=== PATIENT | male | born 1950 | race Two or more races ===

== ENCOUNTER 2022-02-04 09:59 | Day surgery (SDC) | payer OTHER ==
--- NOTE | 2022-02-02 09:17 | P.HPOR ---
History of Present Illness H&P Date: 02/02/22 Chief Complaint: Left left thumb and ring finger soft tissue mass, left carpal tunnel syndro Subjective: This is a 71 year old male that presents today for initial evaluation regarding a 10-15 year history of left hand numbness mainly involving the thumb index and middle fingers. He also notes soft tissue masses on the left thumb and ring finger that have been present for the past 25 years after a incident at work but states they have been more symptomatic over the last year. He has no other history of recent injury. Physical Examination: LUE: AIN/PIN/Radial/Ulnar/Median motor intact. Radial/Ulnar/Median SILT. 2+/4 Radial/Ulnar pulses palpated. 5/5 APB, 5/5 FDI. Negative Finkelsteins, negative CMC grind, positive Durkan's compression. 1cm subcutaneous mass on volar aspect of thumb tip and volar aspect of ring finger at level of PIP joint. Imaging: X-Rays of the left hand demonstrate advanced degenerative changes at the radioscaphoid articulation. Thumb CMC arthritis, index finger MCP arthritis. Impression: 1.) Left carpal tunnel syndrome 2.) Left thumb soft tissue mass 2x1cm 3.) Left ring finger volar soft tissue mass 1x1cm Plan: Diagnosis and treatment options were discussed with the patient. He would like to proceed with surgical intervention since he failed to respond to conservative treatment. Risks and benefit of surgery including bleeding, infection, damage to surrounding tissue, need for further surgery, possible need to convert to open procedure, residual numbness were discussed and the patient wished to go forward with surgery consisting of left thumb and ring finger soft tissue mass excision with left endoscopic vs open carpal tunnel release. PCP clearance is requested. -Donovan Gonsalez DO Orthopedic Hand/Upper Extremity Surgeon Physical Examination Osteopathic Statement: *. No significant issues noted on an osteopathic structural exam other than those noted in the History and Physical/Consult.
[2022-02-03 14:48] VITALS: BMI 36.0
[~2022-02-04 09:59] MED LIST: DEXAMETHASONE SOD PHOSPHATE 4 MG/ML 1 ML VIAL IV ONE; LACTATED RINGERS 1,000 ML IV SCH; ONDANSETRON 4 MG/2 ML VIAL IVP ONE; Pre Op ABX Message 1 EACH MISC MISCELLANE ONE; fentaNYL (PF) 50 MCG/ML 2 ML AMP IV PRN
[2022-02-04] MEDS ORDERED: fentaNYL (PF) 50 MCG/ML 2 ML AMP ONE (10:28)
[2022-02-04] MEDS ORDERED: PROPOFOL 10 MG/ML 20 ML VIAL IV ONE (10:28)
[2022-02-04] MEDS ORDERED: MIDAZOLAM 2 MG/2 ML VIAL ONE (10:28)
[2022-02-04] MEDS ORDERED: LIDOCAINE 2% INJ 20 MG/ML (2 ML VIAL) ONE (10:28)
[2022-02-04] MEDS ORDERED: PHENYLEPHRINE-0.9% NACL SYG 1,000 MCG/10 ML SYRINGE ONE (10:28)
[2022-02-04] MEDS ORDERED: BUPIVACAINE (PF) 0.5% 30 ML VIAL SQ ONE ×2 (10:53→11:25)
[2022-02-04 11:41] VITALS: TEMP 96.8
[2022-02-04 12:06] VITALS: RESP 16
[2022-02-04 12:20] VITALS: PULSE 60
[2022-02-04 12:38] VITALS: BP 119/77
--- NOTE | 2022-02-04 19:02 | P.OP ---
Date of Procedure: 02/04/22 Preoperative Diagnosis: 1.) Left carpal tunnel syndrome 2.) Left thumb volar soft tissue mass 2x2cm 3.) Left ring finger volar soft tissue mass 1x2cm Postoperative Diagnosis: 1.) Left carpal tunnel syndrome 2.) Left thumb volar soft tissue mass 2x2cm 3.) Left ring finger volar soft tissue mass 1x2cm Procedure(s) Performed: 1.) Left endoscopic carpal tunnel release 2.) Left thumb volar soft tissue mass 2x2cm excision 3.) Left ring finger volar soft tissue mass 1x2cm excision Anesthesia: GETA Surgeon: Donovan Gonsalez Arborist #1: Ky Valdez Estimated Blood Loss (ml): 0 Pathology: other (Thumb and ring finger soft tissue mass) Condition: stable Disposition: PACU Description of Procedure: This is a 71 year old male who presents today for a left endoscopic carpal tunnel release and left thumb and ring finger soft tissue mass excision after having failed conservative treatment in the past. Risks and benefits of surgery were discussed with the patient including bleeding, damage to surrounding tissue, infection, need to convert to open procedure, need for further surgery as well as risks of anesthesia including pulmonary embolism and even and the patient wished to proceed with surgical intervention. The patients was seen in the pre-operative area by myself. Consent and H&P were completed and updated. The correct extremity was marked in the pre-operative area by myself and all other questions were answered. Operative Narrative: The patient was brought to the operating room by the department of anesthesia. They remained on the portable stretcher and a rolling hand table was brought to the side of the operative extremity. Pre-operative time out was performed indicating the correct patient, procedure and laterality. All in the room agreed. The patient was then drifted off to sleep by the department of a nesthesia. A nonsterile tourniquet was then applied to the operative extremity and the left upper extremity was then prepped and draped in normal sterile fashion. The operative extremity was the exsanguinated with an esmarch bandage and the tourniquet was inflated to 250mmHg. 15 blade scalpel was utilized to make a transverse incision on the palmar skin just ulnar to the palmaris longus tendon at the level of the distal wrist crease. Ragnell retractor was then placed radially and blunt dissection was performed to reveal the distal forearm fascia. This was lifted with fine Humberto pick ups and Littler tenotomy scissors were then used to open the forearm fascia transversely and a double skin hook was then placed. Hamate finder was placed into the carpal tunnel and then sequential sized dilators were inserted followed by the synovial elevator to separate the flexor tenosynovium from the undersurface of the transverse carpal ligament and a washboard texture was felt. The [employer] endoscopic carpal tunnel release system gun was the then inserted into the carpal tunnel hugging the deep portion of the transverse carpal ligament in line with the base of the ring finger. Transverse fibers of the ligament were directly visualized. Pressure was applied on the palm to reveal the distal extent of the transverse carpal ligament. The blade was then deployed and the distal half of the transverse carpal ligament was released. The scope was then brought distal again and remaining transverse fibers were incised with the blade. The proximal half of the transverse carpal ligament was then divided and again the scope was advanced distal and remaining transverse fibers were incised with the blade. The radial and ulnar leaflets were directly visualized and mobile consistent with complete release. Tenotomy scissors were then utilized to release the remaining distal forearm fascia under direct visualization taking care to preserve the palmar cutaneous branch of the median nerve. Skin closure was performed with interrupted 4-0 Monocryl suture followed by Mastisol and steri strips. Attention was then brought to the thumb. Oblique incision was made over the area of the mass along the volar pulp just distal to the IP flexion crease. Blunt dissection was taken through subcutaneous tissues taking care to preserve branches of the ulnar and radial digital nerves. There appeared to be a multilobulated round white mass consistent with gouty tophi deposits. This was excised from the FPL sheath and sent for pathology. The wound was then irrigated and closed with 4-0 nylon suture. Attention was then focused on the ring finger. An Jade style incision was made over the proximal phalanx of the ring finger centered over the area of fullness. Blunt dissection was taken through subcutaneous tissues taking care to protect the digital nerves. It was apparent that the mass and fullness was due to complete infiltration of both the FDP and FDS tendons to ring finger. The distal portion of the A2 rylie was vented. A small amount of the FDS tendon was debulked and was consisted with gouty tophi infiltration. At that point decision was made to limit debulking to avoid flexor tenon rupture due to diffuse infiltration of the tendon. Portion of the mass was excised and sent for pathology. The wound was the irrigated and closed with 4-0 nylon suture. 0.5% bupivacaine was injected into the subcutaneous tissues of the palmar skin in the carpal tunnel, thumb and ring finger, 18ccs total. Sterile dressing was applied consisting of adaptic, 4x4s, Webril, and an oneil bandage. Tourniquet was let down and the hand immediately was well perfused. The patient was then woken by the department of anesthesia and transferred to PACU in stable condition. Ky FUNES was present for the case in its entirety and assisted in major portions of the case and protection of vital neurovascular structures. Donovan Gonsalez D.O. Orthopedic Hand/Upper Extremity Surgeon
== END 2022-02-04 13:12 | disposition home or self-care (01) ==
LOC: OR 09:59
PROVIDERS: ATTEND Orthopaedic Surgery Hand Surgery
DX: G56.02 Carpal tunnel syndrome, left upper limb (principal); M1A.9XX1 Chronic gout, unspecified, with tophus (tophi); I10 Essential (primary) hypertension
CPT/HCPCS: 88305; 29848; 26111 ×2; J2250; J3010; J2370; J2704; J2001